=== PATIENT | male | born 1955 | race Caucasian/White ===

== ENCOUNTER 2023-09-07 12:37 | Inpatient (IN) | payer OTHER ==
[2023-09-07 13:33] VITALS: BMI 34.6
[2023-09-07] MEDS ORDERED: LOPERAMIDE HCL 2 MG CAPSULE PO PRN (14:01)
[2023-09-07] MEDS ORDERED: POLYETHYLENE GLYCOL (HEALTHYLAX) 3350 17 GM PACKET PO PRN (14:01)
[2023-09-07] MEDS ORDERED: NALOXONE HCL (KLOXXADO) 8 MG SPRAY NS PRN (14:01)
[2023-09-07] MEDS ORDERED: BENZOCAINE/MENTHOL (CHLORASEPTIC ) LOZENGE MM PRN (14:01)
[2023-09-07] MEDS ORDERED: BENZONATATE 200 MG CAPSULE PO PRN (14:01)
[2023-09-07] MEDS ORDERED: hydrOXYzine PAMOATE 25 MG CAPSULE (FP) PO PRN (14:01)
[2023-09-07] MEDS ORDERED: MAG HYDROX/AL HYDROX/SIMETH 30 ML UNIT-DOSE CUP PO PRN (14:01)
[2023-09-07] MEDS ORDERED: NALOXONE HCL 0.4 MG/ML VIAL IM PRN (14:01)
[2023-09-07] MEDS ORDERED: MAGNESIUM HYDROX 2400MG/30ML ORAL SUSPENSION 30 ML CUP PO PRN (14:01)
[2023-09-07] MEDS ORDERED: guaiFENesin 600 MG TABLET.ER (FP) PO PRN (14:01)
[2023-09-07] MEDS ORDERED: ACETAMINOPHEN 325 MG TABLET (FP) PO PRN (14:01)
[2023-09-07] MEDS: PRENATAL VITAMINS W/ FOLIC ACID TABLET (FP) PO SCH (15:25)
[2023-09-07] MEDS ORDERED: LORATADINE 10 MG TABLET PO PRN (15:33)
[2023-09-07] MEDS: TUBERCULIN PPD 5 TU/0.1ML SYRINGE (IN PATIENT USE ONLY) ID ONE (17:11)
[2023-09-07] MEDS: THIAMINE 100 MG TABLET PO SCH (21:21)
[2023-09-07] MEDS: MELATONIN 5 MG TABLETS PO SCH (21:21)
[2023-09-08] MEDS: FERROUS SO4 325 MG TABLET (FP) PO SCH (09:56)
[2023-09-08] MEDS: LOSARTAN POTASSIUM 50 MG TABLET PO SCH (09:56)
[2023-09-08 12:06] LABS: PH,URINE 6.5 (5.0-8.0); URINE APPEARANCE CLEAR; URINE BILIRUBIN NEGATIVE (NEGATIVE); URINE COLOR YELLOW; URINE GLUCOSE (UA) NEGATIVE (NEGATIVE); URINE KETONE NEGATIVE (NEGATIVE); URINE LEUK ESTERASE NEGATIVE (NEGATIVE); URINE NITRITE NEGATIVE (NEGATIVE); URINE PROTEIN NEGATIVE (NEGATIVE); URINE UROBILINOGEN 0.2 mg/dL (0.2-1.0)
[2023-09-08 12:06] LABS: POTASSIUM 4.5 mmol/L (3.5-5.1)
[2023-09-08 12:13] LABS: ALBUMIN 3.9 g/dl (3.4-5.0); BLOOD UREA NITROGEN 10.3 mg/dL (7-18)
[2023-09-08 12:14] LABS: CALCIUM 9.8 mg/dL (8.5-10.1)
[2023-09-08 12:15] LABS: CREATININE 0.7 mg/dL (0.55-1.3)
[2023-09-08 12:16] LABS: HEMATOCRIT 31.7 % (35.4-49); HEMOGLOBIN 10.2 GM/dL (11.7-16.9); MCH 26.8 pg (25.7-33.7); MCHC 32.2 g/dl (32.0-35.9); MEAN CELL VOLUME 83.4 fl (80-96); MEAN PLT VOLUME 8.5 fl (7.5-11.1); PLATELET COUNT 305 10^3/uL (134-434); RDW 17.1 % (11.9-15.9); WHITE BLOOD COUNT 8.2 K/mm3 (4.0-10.0)
[2023-09-08 12:17] LABS: BILIRUBIN,TOTAL 0.6 mg/dL (0.2-1)
[2023-09-08 12:18] LABS: TOT PROT 6.9 g/dl (6.4-8.2)
[2023-09-08 12:45] LABS: SYPHILIS W/ RPR CONF NON-REACTIVE (NONREACTIVE)
[2023-09-08] MEDS: PRAMOXINE HCL 1% (SARNA SENSITIVE) 222 ML BOTTLE TP SCH (21:30)
[2023-09-08] MEDS: HYDROCORTISONE 1% TOPICAL CREAM 30 GM TUBE TP SCH (21:30)
[2023-09-08] MEDS ORDERED: HYDROCORTISONE 1% TP SCH (22:00)
[2023-09-08] MEDS ORDERED: TERBINAFINE HCL TP SCH (22:00)
[2023-09-09] MEDS: NALTREXONE HCL 50 MG TABLET PO ONE (13:32)
[2023-09-09] MEDS: SODIUM CHLORIDE NASAL SPRAY 44 ML BOTTLE NS PRN (14:41)
[2023-09-09] MEDS: TOLNAFTATE 1% POWDER 45 GM POW TP SCH (15:15)
[2023-09-09] MEDS: TOLNAFTATE 1% CREAM 15 GM TUBE TP SCH (21:18)
[2023-09-09] MEDS ORDERED: TOLNAFTATE 1% POWDER 45 GM POW TP SCH (22:00)
[2023-09-10] MEDS: NALTREXONE HCL 50 MG TABLET PO SCH (09:58)
[2023-09-13] MEDS ORDERED: hydrOXYzine PAMOATE 50 MG CAPSULE (FP) PO PRN (14:09)
[2023-09-14] MEDS ORDERED: diphenhydrAMINE HCL 25 MG CAPSULE (FP) PO PRN (10:59)
[2023-09-14] MEDS: HYDROCORTISONE 2.5% TOPICAL CREAM 30 GM TUBE TP SCH (13:40)
[2023-09-14] MEDS: IBUPROFEN 600 MG TABLET (FP) PO PRN (21:25)
[2023-09-15] MEDS: LORATADINE 10 MG TABLET PO PRN (05:58)
[2023-09-16] MEDS: IBUPROFEN 400 MG TABLET (FP) PO PRN (05:49)
[2023-09-18 06:50] VITALS: RESP 18
[2023-09-19 06:36] VITALS: TEMP 97.3
[2023-09-19 09:03] VITALS: BP 153/69; PULSE 100
[2023-09-19] MEDS: SECUKINUMAB SQ SCH (14:50)
== END 2023-09-19 15:04 | disposition home or self-care (01) | DRG 895 ==
LOC: YASAS 12:37 → Y3W 15:22
PROVIDERS: ADMIT Allergy & Immunology; ATTEND Psychiatry & Neurology Pain Medicine
PROC: HZ42ZZZ Group Counseling for Substance Abuse Treatment, Cognitive-Behavioral (ICD-10-PCS; principal; 2023-09-07)
DX: F10.20 Alcohol dependence, uncomplicated (principal); I10 Essential (primary) hypertension; L40.50 Arthropathic psoriasis, unspecified; R21 Rash and other nonspecific skin eruption; Z86.79 Personal history of other diseases of the circulatory system; Z87.891 Personal history of nicotine dependence; Z88.8 Allergy status to other drugs, medicaments and biological substances
CPT/HCPCS: 36415; 80053; 80305; 81003; 82140; 85027; 86780; 86803; 87522; 87811; 93005; 93010